=== PATIENT | female | born 1995 | race Caucasian/White ===

== ENCOUNTER 2024-10-14 10:20 | Inpatient (IN) ==
[2024-10-14] MEDS: LORazepam 2 MG/ML VIAL IM ONE (10:44)
[2024-10-14] MEDS: 0.9 % SODIUM CHLORIDE 1,000 ML IV ONE ×2 (10:45→11:45)
[2024-10-14] MEDS: HALOPERIDOL LACTATE 5 MG/ML VIAL IM ONE (10:55)
[2024-10-14] MEDS: diphenhydrAMINE 50 MG/ML VIAL IV ONE (10:55)
[2024-10-14 11:00] LABS: Basophils # (Auto) 0.02 K/mcL (0.00-0.30); Basophils % (Auto) 0.2 % (0.0-2.0); Eosinophils # (Auto) 0.05 K/mcL (0.00-0.70); Eosinophils % (Auto) 0.5 % (0.0-7.0); Hematocrit 36.4 % (34.1-44.9); Hemoglobin 11.7 g/dL (11.2-15.7); Lymphocytes # (Auto) 2.89 K/mcL (1.50-4.80); Lymphocytes % (Auto) 27.2 % (15.5-49.0); Mean Cell Volume 85.8 fL (80.0-100.0); Mean Corpuscular HGB Conc 32.1 g/dL (31.0-36.0); Monocytes # (Auto) 1.21 K/mcL (0.10-0.90); Monocytes % (Auto) 11.4 % (1.0-12.0); Platelet Count 423 K/mcL (140-440); RBC 4.24 M/mcL (3.59-5.38); WBC 10.6 K/mcL (4.5-11.0)
[2024-10-14] MEDS: ETOMIDATE 20 MG/10 ML VIAL IV ONE (11:25)
[2024-10-14] MEDS: ROCURONIUM 10 MG/ML ML IV ONE ×2 (11:26→12:27)
[2024-10-14 11:28] LABS: Alcohol, Blood < 10.1 mg/dL; Alcohol,Blood < 0.010 gm/dL (<0.010)
[2024-10-14 11:30] LABS: ALT/SGPT 39 U/L (<40); AST/SGOT 46 U/L (<32); Albumin 4.2 gm/dL (3.2-5.2); Albumin/Globulin Ratio 1.8 (1.0-2.3); Alkaline Phosphatase 78 U/L (39-117); Bilirubin,Total 0.2 mg/dL (0.1-1.0); Blood Urea Nitrogen 8 mg/dL (6-20); Calcium 9.3 mg/dL (8.6-10.4); Carbon Dioxide 22 mmol/L (22-30); Chloride 101 mmol/L (96-108); Globulin 2.4 gm/dL (2.2-3.7); Glomerular Filtration Rate 119; Glucose 148 mg/dL (70-105); Potassium 3.5 mmol/L (3.3-5.1); Sodium 138 mmol/L (133-145)
[2024-10-14] MEDS: PROPOFOL 1,000 MG in PREMIX 1 BAG IV SCH ×2 (11:40→14:40)
[2024-10-14] MEDS: MIDAZOLAM 5 MG/5 ML VIAL IV ONE ×2 (12:13→12:50)
[2024-10-14] MEDS: PROPOFOL 200 MG/20 ML VIAL IV ONE (12:15)
[2024-10-14] MEDS: fentaNYL 100 MCG/2 ML VIAL IV ONE (12:27)
[2024-10-14 12:29] LABS: Acetaminophen 10.4 ug/mL; Salicylate 7.9 mg/dL
[2024-10-14] MEDS: fentaNYL 100 MCG/2 ML VIAL ONE ×2 (13:40→18:02)
[2024-10-14 13:41] LABS: ABG Methemoglobin 0.4 % (0.4-1.5); Total Hemoglobin 12.1 gm/Dl (12.0-15.0); VBG Base Excess -1 (-2-3); VBG HCO3 21.5 mmol/L (24.0-28.0); VBG Oxygen Saturation 92.3 % (40.0-70.0); VBG PCO2 28.3 mmHg (41.0-51.0); VBG PO2 192.9 mmHg (25.0-40.0); VBG Total CO2 22.4 mmol/L (25.0-29.0)
[2024-10-14] MEDS: KETAMINE 50 MG/ML ML IV ONE ×2 (13:42→14:17)
[2024-10-14] MEDS: KETAMINE 10 MG/ML ML IV ONE (13:42)
[2024-10-14] MEDS: KETAMINE 10 MG/ML ML IM ONE (13:42)
[2024-10-14] MEDS ORDERED: SODIUM CHLORIDE 0.9% IV SCH (14:00)
[2024-10-14] MEDS ORDERED: KETAMINE IV SCH (14:00)
[2024-10-14] MEDS: cefTRIAXone 1 GM VIAL IV ONE (14:04)
[2024-10-14 15:35] LABS: Appearance,Urine Clear (Clear); Bilirubin,Urine Negative (Negative); Color,Urine Yellow; Glucose,Urine (UA) Negative (Negative); Ketones,Urine 80 mg/dL (Negative); Leukocyte Esterase,Urine Negative /uL (Negative); Nitrate,Urine Negative (Negative); Protein,Urine Negative (Negative); Specific Gravity,Urine 1.015 (1.000-1.035); Urine Blood Negative ery/mcL (Negative); Urobilinogen,Urine Normal
[2024-10-14] MEDS ORDERED: IPRATROPIUM/ALBUTEROL 3 ML AMPUL.NEB NEB PRN (16:32)
[2024-10-14] MEDS ORDERED: VANCOMYCIN PER PHARMACY IV SCH (16:32)
[2024-10-14] MEDS ORDERED: MIDAZOLAM 2 MG/2 ML VIAL IV PRN (16:32)
[2024-10-14] MEDS ORDERED: NOREPINEPHRINE BITARTRATE 8 MG in 0.9 % SODIUM CHLORIDE 242 ML IV PRN (16:32)
[2024-10-14] MEDS: SODIUM CHLORIDE 0.9% IV SCH (16:41)
[2024-10-14] MEDS: KETAMINE IV SCH (16:41)
[2024-10-14 16:49] LABS: Amphetamine Screen,Urine Suspect positive; Barbiturate Screen,Urine None detected; Benzodiazepines Screen,Urine Suspect positive; Cannabinoid Screen,Urine None detected; Cocaine Screen,Urine None detected; Fentanyl, Urine Screen Suspect Positive; Opiate Screen,Urine None detected; Oxycodone, Urine Screen None detected; Phencyclidine Screen,Urine None detected
[2024-10-14] MEDS: LACTATED RINGERS 1,000 ML IV SCH (16:58)
[2024-10-14] MEDS: fentaNYL 100 MCG/2 ML VIAL IV PRN (17:15)
[2024-10-14] MEDS ORDERED: NOREPINEPHRINE 250 ML IV PRN (17:22)
[2024-10-14] MEDS: DOXYCYCLINE 100 MG in DEXTROSE 5% IN WATER 100 ML IV SCH (17:52)
[2024-10-14] MEDS: PROPOFOL 100 ML IV ONE ×2 (18:58→21:43)
[2024-10-14] MEDS: fentaNYL 2,500 MCG in 0.9 % SODIUM CHLORIDE 200 ML IV PRN (19:15)
[2024-10-14] MEDS: VANCOMYCIN 1,500 MG in 0.9 % SODIUM CHLORIDE 500 ML IV SCH (19:30)
[2024-10-14] MEDS: 0.9 % SODIUM CHLORIDE 10 ML SYRINGE IV SCH ×2 (20:10→20:14)
[2024-10-14] MEDS: CHLORHEXIDINE GLUCONATE 15 ML UDC SWABMOUTH SCH (20:12)
[2024-10-14] MEDS: CEFEPIME 2 GM VIAL IV ONE (20:26)
[2024-10-14] MEDS: PROPOFOL 1,000 MG in PREMIX 1 BAG IV PRN (20:46)
[2024-10-14] MEDS: 0.9 % SODIUM CHLORIDE 250 ML IV SCH (21:49)
[2024-10-15] MEDS: LACTATED RINGERS 500 ML IV ONE (01:01)
[2024-10-15] MEDS: PROPOFOL 100 ML IV ONE (03:37)
[2024-10-15 07:04] LABS: Basophils # (Auto) 0.03 K/mcL (0.00-0.30); Basophils % (Auto) 0.3 % (0.0-2.0); Eosinophils # (Auto) 0.21 K/mcL (0.00-0.70); Hematocrit 32.9 % (34.1-44.9); Hemoglobin 10.7 g/dL (11.2-15.7); Lymphocytes # (Auto) 1.96 K/mcL (1.50-4.80); Lymphocytes % (Auto) 18.5 % (15.5-49.0); Mean Cell Volume 86.1 fL (80.0-100.0); Mean Corpuscular HGB Conc 32.5 g/dL (31.0-36.0); Mean Platelet Volume 9.1 fL (8.8-12.5); Monocytes # (Auto) 0.79 K/mcL (0.10-0.90); Monocytes % (Auto) 7.5 % (1.0-12.0); Neutrophils % (Auto) 71.5 % (38.0-78.0); Platelet Count 361 K/mcL (140-440); RBC 3.82 M/mcL (3.59-5.38); Red Cell Distribution Width 13.3 % (11.5-14.5); WBC 10.6 K/mcL (4.5-11.0)
[2024-10-15 07:26] LABS: ALT/SGPT 27 U/L (<40); AST/SGOT 25 U/L (<32); Albumin 3.3 gm/dL (3.2-5.2); Albumin/Globulin Ratio 1.7 (1.0-2.3); Alkaline Phosphatase 68 U/L (39-117); Bilirubin,Direct 0.2 mg/dL (<0.3); Bilirubin,Total 0.4 mg/dL (0.1-1.0); Blood Urea Nitrogen 6 mg/dL (6-20); Calcium 7.9 mg/dL (8.6-10.4); Carbon Dioxide 18 mmol/L (22-30); Chloride 108 mmol/L (96-108); Glomerular Filtration Rate 132; Glucose 79 mg/dL (70-105); Lactate Dehydrogenase 284 U/L (135-225); Phosphorous 1.6 mg/dL (2.5-4.5); Sodium 140 mmol/L (133-145); Triglycerides 74 mg/dL (<150); Uric Acid 4.8 mg/dL (2.5-8.0)
[2024-10-15] MEDS: CEFEPIME 2 GM VIAL IV SCH (08:56)
[2024-10-15] MEDS: ENOXAPARIN 40 MG/0.4 ML SYRINGE SQ SCH (08:56)
[2024-10-15] MEDS ORDERED: cefTRIAXone 1 GM VIAL IV SCH (09:00)
[2024-10-15] MEDS: POTASSIUM PHOSPHATE 40 MEQ in DEXTROSE 5% IN WATER 500 ML IV ONE (10:51)
[2024-10-15] MEDS: MUPIROCIN OINT 2% 22GM NARES SCH (10:51)
[2024-10-15] MEDS: NICOTINE 21 MG PATCH TOPICAL SCH (11:41)
[2024-10-15] MEDS: FLUoxetine HCL 20 MG CAPSULE PO SCH (14:42)
[2024-10-15] MEDS: hydrOXYzine 25 MG TABLET PO ONE (14:42)
[2024-10-15] MEDS: busPIRone 5 MG TABLET PO SCH (14:42)
[2024-10-15] MEDS: carBAMazepine 100 MG TAB.ER.12H PO SCH (14:42)
[2024-10-15] MEDS: ACETAMINOPHEN 1,000 MG/100 ML BAG IV ONE (15:58)
[2024-10-15] MEDS: CYCLOBENZAPRINE 10 MG TABLET PO PRN (20:09)
[2024-10-15] MEDS: traZODone HCL 50 MG TABLET PO SCH (20:09)
[2024-10-15] MEDS: oxyCODONE IR 5 MG TABLET PO PRN (23:11)
[2024-10-15] MEDS: oxyCODONE IR 5 MG TABLET PO ONE (23:17)
[2024-10-16] MEDS ORDERED: IOPAMIDOL 100 ML BOTTLE IV ONE (08:05)
[2024-10-16] MEDS: 0.9 % SODIUM CHLORIDE 1,000 ML IV SCH (08:41)
[2024-10-16 08:54] LABS: Basophils # (Auto) 0.03 K/mcL (0.00-0.30); Basophils % (Auto) 0.3 % (0.0-2.0); Eosinophils % (Auto) 4.4 % (0.0-7.0); Hematocrit 31.3 % (34.1-44.9); Hemoglobin 10.1 g/dL (11.2-15.7); Lymphocytes # (Auto) 1.52 K/mcL (1.50-4.80); Lymphocytes % (Auto) 16.6 % (15.5-49.0); Mean Cell Volume 86.2 fL (80.0-100.0); Mean Corpuscular HGB Conc 32.3 g/dL (31.0-36.0); Mean Platelet Volume 9.1 fL (8.8-12.5); Monocytes # (Auto) 0.68 K/mcL (0.10-0.90); Monocytes % (Auto) 7.4 % (1.0-12.0); Neutrophils % (Auto) 71.1 % (38.0-78.0); Platelet Count 330 K/mcL (140-440); RBC 3.63 M/mcL (3.59-5.38); Red Cell Distribution Width 13.7 % (11.5-14.5); WBC 9.2 K/mcL (4.5-11.0)
[2024-10-16 09:09] LABS: ALT/SGPT 24 U/L (<40); AST/SGOT 19 U/L (<32); Albumin 3.1 gm/dL (3.2-5.2); Albumin/Globulin Ratio 2.1 (1.0-2.3); Alkaline Phosphatase 79 U/L (39-117); Bilirubin,Direct < 0.2 mg/dL (0-0.3); Bilirubin,Total < 0.2 mg/dL (0.1-1.0); Blood Urea Nitrogen 5 mg/dL (6-20); Calcium 7.6 mg/dL (8.6-10.4); Carbon Dioxide 22 mmol/L (22-30); Chloride 103 mmol/L (96-108); Globulin 1.5 gm/dL (2.2-3.7); Glomerular Filtration Rate 132; Glucose 147 mg/dL (70-105); Lactate Dehydrogenase 248 U/L (135-225); Phosphorous 2.5 mg/dL (2.5-4.5); Potassium 3.8 mmol/L (3.3-5.1); Sodium 136 mmol/L (133-145); Triglycerides 100 mg/dL (<150); Uric Acid 2.5 mg/dL (2.5-8.0)
[2024-10-16] MEDS: VANCOMYCIN 1,500 MG in 0.9 % SODIUM CHLORIDE 500 ML IV SCH (11:03)
[2024-10-16] MEDS: LEVOFLOXACIN 750 MG/150 ML BAG IV SCH (11:29)
[2024-10-17 06:02] LABS: Basophils # (Auto) 0.03 K/mcL (0.00-0.30); Basophils % (Auto) 0.4 % (0.0-2.0); Eosinophils # (Auto) 0.43 K/mcL (0.00-0.70); Eosinophils % (Auto) 5.9 % (0.0-7.0); Hematocrit 34.2 % (34.1-44.9); Hemoglobin 11.1 g/dL (11.2-15.7); Lymphocytes # (Auto) 1.87 K/mcL (1.50-4.80); Lymphocytes % (Auto) 25.5 % (15.5-49.0); Mean Cell Volume 85.9 fL (80.0-100.0); Mean Corpuscular HGB Conc 32.5 g/dL (31.0-36.0); Mean Platelet Volume 9.1 fL (8.8-12.5); Monocytes # (Auto) 0.57 K/mcL (0.10-0.90); Monocytes % (Auto) 7.8 % (1.0-12.0); Neutrophils % (Auto) 60.3 % (38.0-78.0); Platelet Count 358 K/mcL (140-440); RBC 3.98 M/mcL (3.59-5.38); Red Cell Distribution Width 13.4 % (11.5-14.5); WBC 7.3 K/mcL (4.5-11.0)
[2024-10-17 06:36] LABS: ALT/SGPT 23 U/L (<40); AST/SGOT 16 U/L (<32); Albumin 3.4 gm/dL (3.2-5.2); Albumin/Globulin Ratio 1.4 (1.0-2.3); Alkaline Phosphatase 107 U/L (39-117); Bilirubin,Direct < 0.2 mg/dL (0-0.3); Bilirubin,Total < 0.2 mg/dL (0.1-1.0); Blood Urea Nitrogen 5 mg/dL (6-20); Calcium 8.8 mg/dL (8.6-10.4); Carbon Dioxide 23 mmol/L (22-30); Chloride 103 mmol/L (96-108); Globulin 2.4 gm/dL (2.2-3.7); Glomerular Filtration Rate 142; Glucose 104 mg/dL (70-105); Lactate Dehydrogenase 218 U/L (135-225); Phosphorous 3.2 mg/dL (2.5-4.5); Potassium 4.1 mmol/L (3.3-5.1); Sodium 137 mmol/L (133-145); Triglycerides 93 mg/dL (<150); Uric Acid 2.1 mg/dL (2.5-8.0)
[2024-10-17 08:06] VITALS: O2SAT 95
[2024-10-17] MEDS ORDERED: cefTRIAXone 1 GM VIAL IV SCH (09:00)
[2024-10-17] MEDS: cefTRIAXone 2 GM in DEXTROSE 5% IN WATER 50 ML IV SCH (10:05)
[2024-10-17] MEDS: AMOXICILLIN/POTASSIUM CLAV 875 MG TABLET PO SCH (12:34)
[2024-10-17 15:30] VITALS: TEMP 97.9
[2024-10-25 08:08] LABS: Alprazolam, Urine Negative (Cutoff=100); Clonazepam, Urine Negative (Cutoff=100); Flurazepam, Urine Negative (Cutoff=100); Lorazepam Confirm, Urine 114 ng/mL (Cutoff=100); Lorazepam, Urine Positive; Midazolam Confirm, Urine 1710 ng/mL (Cutoff=100); Midazolam, Urine Positive; Nordiazepam, Urine Negative (Cutoff=100); Oxazepam, Urine Negative (Cutoff=100); Temazepam, Urine Negative (Cutoff=100); Triazolam, Urine Negative (Cutoff=100)
[2024-10-28 13:09] LABS: Amphetamine Screen Positive
== END 2024-10-17 13:40 | disposition home or self-care (01) | DRG 917 ==
LOC: ED 10:20 → ICU 16:30
PROVIDERS: ADMIT Student in an Organized Health Care Education/Training Program; ATTEND Student in an Organized Health Care Education/Training Program

== ENCOUNTER 2024-11-14 23:25 | Inpatient (IN) ==
[2024-11-14] MEDS ORDERED: IOPAMIDOL 100 ML BOTTLE IV ONE (23:26)
[2024-11-14] MEDS: OLANZapine 5 MG TABLET PO ONE (23:47)
[2024-11-15] MEDS: cefTRIAXone 2 GM in DEXTROSE 5% IN WATER 50 ML IV ONE (00:01)
[2024-11-15 00:48] LABS: Appearance,Urine HAZY (Clear); Bilirubin,Urine Negative (Negative); Color,Urine Yellow; Glucose,Urine (UA) Negative (Negative); Ketones,Urine Negative (Negative); Leukocyte Esterase,Urine Negative /uL (Negative); Mucus,Urine FEW /hpf; Nitrate,Urine Negative (Negative); Protein,Urine Negative (Negative); Specific Gravity,Urine 1.021 (1.000-1.035); Urine Blood Negative (Negative); Urine RBC 6 /hpf (0-3); Urine Squamous Epithelial Cell 10 /hpf (0-4); Urine WBC 23 /hpf (0-4)
[2024-11-15] MEDS: 0.9 % SODIUM CHLORIDE 1,710 ML IV ONE (00:51)
[2024-11-15] MEDS: LORazepam 2 MG/ML VIAL IV ONE (01:00)
[2024-11-15 01:02] LABS: Amphetamine Screen,Urine Suspect positive; Barbiturate Screen,Urine None detected; Benzodiazepines Screen,Urine Suspect positive; Cannabinoid Screen,Urine Suspect Positive; Cocaine Screen,Urine None detected; Fentanyl, Urine Screen None Detected; Opiate Screen,Urine None detected; Oxycodone, Urine Screen None detected; Phencyclidine Screen,Urine None detected
[2024-11-15 01:37] LABS: Basophils # (Auto) 0.01 K/mcL (0.00-0.30); Basophils % (Auto) 0.1 % (0.0-2.0); Eosinophils # (Auto) 0.01 K/mcL (0.00-0.70); Eosinophils % (Auto) 0.1 % (0.0-7.0); Hematocrit 33.6 % (34.1-44.9); Hemoglobin 10.7 g/dL (11.2-15.7); Lymphocytes # (Auto) 0.39 K/mcL (1.50-4.80); Lymphocytes % (Auto) 3.4 % (15.5-49.0); Mean Cell Volume 84.6 fL (80.0-100.0); Mean Corpuscular HGB Conc 31.8 g/dL (31.0-36.0); Mean Platelet Volume 8.9 fL (8.8-12.5); Monocytes # (Auto) 0.31 K/mcL (0.10-0.90); Monocytes % (Auto) 2.7 % (1.0-12.0); Neutrophils % (Auto) 93.4 % (38.0-78.0); Platelet Count 373 K/mcL (140-440); RBC 3.97 M/mcL (3.59-5.38); Red Cell Distribution Width 13.2 % (11.5-14.5); WBC 11.6 K/mcL (4.5-11.0)
[2024-11-15] MEDS: fentaNYL 100 MCG/2 ML VIAL IV ONE (01:45)
[2024-11-15 01:52] LABS: ALT/SGPT 29 U/L (<40); AST/SGOT 34 U/L (<32); Albumin 3.8 gm/dL (3.2-5.2); Albumin/Globulin Ratio 1.7 (1.0-2.3); Alkaline Phosphatase 82 U/L (39-117); Bilirubin,Total 0.4 mg/dL (0.1-1.0); Blood Urea Nitrogen 13 mg/dL (6-20); Calcium 8.3 mg/dL (8.6-10.4); Carbon Dioxide 23 mmol/L (22-30); Chloride 95 mmol/L (96-108); Globulin 2.2 gm/dL (2.2-3.7); Glomerular Filtration Rate 125; Glucose 103 mg/dL (70-105); Potassium 3.7 mmol/L (3.3-5.1); Sodium 132 mmol/L (133-145)
[2024-11-15] MEDS: KETOROLAC 15 MG/ML VIAL IV ONE (02:00)
[2024-11-15] MEDS: VANCOMYCIN 1,500 MG in 0.9 % SODIUM CHLORIDE 500 ML IV ONE (02:01)
[2024-11-15 02:44] LABS: INR 1.1 (0.9-1.1); Prothrombin Time 15.2 sec (11.9-14.5)
[2024-11-15] MEDS ORDERED: ONDANSETRON 4 MG/2 ML VIAL IV PRN ×2 (07:44→10:42)
[2024-11-15] MEDS ORDERED: LORazepam 2 MG/ML VIAL IV PRN (10:41)
[2024-11-15] MEDS ORDERED: IPRATROPIUM/ALBUTEROL 3 ML AMPUL.NEB NEB PRN (10:42)
[2024-11-15] MEDS ORDERED: SENNOSIDES 1 TABLET PO PRN (10:42)
[2024-11-15] MEDS ORDERED: POLYETHYLENE GLYCOL 3350 17 GM PACKET PO PRN (10:42)
[2024-11-15] MEDS ORDERED: POTASSIUM CHLORIDE 20 MEQ TABLET PO PRN ×2 (10:42)
[2024-11-15] MEDS ORDERED: METOCLOPRAMIDE 10 MG/2 ML VIAL IV PRN (10:42)
[2024-11-15] MEDS ORDERED: POTASSIUM CHLORIDE 40 MEQ in DEXTROSE 5% IN WATER 500 ML IV PRN (10:42)
[2024-11-15] MEDS ORDERED: MAGNESIUM SULFATE 2 GM/50 ML BAG IV PRN (10:42)
[2024-11-15] MEDS ORDERED: VANCOMYCIN PER PHARMACY IV SCH (10:45)
[2024-11-15] MEDS ORDERED: CYCLOBENZAPRINE 10 MG TABLET PO PRN (10:46)
[2024-11-15] MEDS: morphine 4 MG/ML VIAL IV PRN (12:23)
[2024-11-15] MEDS: VANCOMYCIN PER PHARMACY IV ONE (12:31)
[2024-11-15] MEDS: busPIRone 5 MG TABLET PO SCH (12:35)
[2024-11-15] MEDS: ENOXAPARIN 40 MG/0.4 ML SYRINGE SQ SCH (12:36)
[2024-11-15] MEDS: 0.9 % SODIUM CHLORIDE 1,000 ML IV SCH (12:37)
[2024-11-15] MEDS: oxyCODONE/APAP 5/325MG TABLET PO PRN (14:29)
[2024-11-15] MEDS: cefTRIAXone 2 GM in DEXTROSE 5% IN WATER 50 ML IV SCH (14:36)
[2024-11-15] MEDS: 0.9 % SODIUM CHLORIDE 10 ML SYRINGE IV SCH (14:54)
[2024-11-15] MEDS: VANCOMYCIN 1,500 MG in 0.9 % SODIUM CHLORIDE 500 ML IV SCH (15:11)
[2024-11-15] MEDS: ACETAMINOPHEN 325 MG TABLET PO PRN (15:19)
[2024-11-15] MEDS: traZODone HCL 50 MG TABLET PO SCH (21:19)
[2024-11-15] MEDS: DOCUSATE SODIUM 100 MG CAPSULE PO SCH (21:20)
[2024-11-15] MEDS: QUEtiapine 100 MG TABLET PO SCH (21:20)
[2024-11-16 07:01] LABS: ALT/SGPT 18 U/L (<40); AST/SGOT 18 U/L (<32); Albumin/Globulin Ratio 1.6 (1.0-2.3); Alkaline Phosphatase 81 U/L (39-117); Bilirubin,Direct < 0.2 mg/dL (0-0.3); Bilirubin,Total 0.2 mg/dL (0.1-1.0); Blood Urea Nitrogen 13 mg/dL (6-20); Calcium 7.4 mg/dL (8.6-10.4); Carbon Dioxide 19 mmol/L (22-30); Chloride 102 mmol/L (96-108); Globulin 1.9 gm/dL (2.2-3.7); Glomerular Filtration Rate 132; Glucose 115 mg/dL (70-105); Lactate Dehydrogenase 217 U/L (135-225); Phosphorous 1.4 mg/dL (2.5-4.5); Potassium 3.5 mmol/L (3.3-5.1); Sodium 135 mmol/L (133-145); Triglycerides 123 mg/dL (<150); Uric Acid 4.7 mg/dL (2.5-8.0)
[2024-11-16] MEDS: PHOSPHORUS 250 MG TABLET PO SCH (10:13)
[2024-11-16] MEDS: NEUTRA PHOS 1 PACKET PO SCH (10:13)
[2024-11-16] MEDS: FLUoxetine HCL 20 MG CAPSULE PO SCH (10:13)
[2024-11-16] MEDS: carBAMazepine 100 MG TAB.ER.12H PO SCH (11:23)
[2024-11-16] MEDS: CLINDAMYCIN IN 0.9 % SOD CHLOR 600 MG/50 ML BAG IV SCH (11:27)
[2024-11-16] MEDS: morphine 4 MG/ML VIAL IV PRN (12:04)
[2024-11-16 12:32] LABS: Basophils # (Auto) 0.01 K/mcL (0.00-0.30); Basophils % (Auto) 0.1 % (0.0-2.0); Eosinophils # (Auto) 0.26 K/mcL (0.00-0.70); Eosinophils % (Auto) 1.5 % (0.0-7.0); Hemoglobin 9.6 g/dL (11.2-15.7); Lymphocytes # (Auto) 1.03 K/mcL (1.50-4.80); Lymphocytes % (Auto) 5.9 % (15.5-49.0); Mean Cell Volume 85.2 fL (80.0-100.0); Mean Platelet Volume 9.3 fL (8.8-12.5); Monocytes # (Auto) 0.72 K/mcL (0.10-0.90); Monocytes % (Auto) 4.1 % (1.0-12.0); Neutrophils % (Auto) 86.2 % (38.0-78.0); Platelet Count 282 K/mcL (140-440); RBC 3.52 M/mcL (3.59-5.38); Red Cell Distribution Width 13.8 % (11.5-14.5); WBC 17.6 K/mcL (4.5-11.0)
[2024-11-16 13:32] LABS: Band Neutrophils % 3 % (0-10); Eosinophils % (Manual) 1 % (0-7); Lymphocytes % 7 % (15-49); Monocytes % (Manual) 1 % (1-12); Platelet Estimate NORMAL (Normal); RBC Morphology NORMAL (Normal); Segmented Neutrophils % 88 % (38-78)
[2024-11-16] MEDS: VANCOMYCIN 1,500 MG in 0.9 % SODIUM CHLORIDE 500 ML IV SCH (15:36)
[2024-11-16] MEDS: NICOTINE 21 MG PATCH TOPICAL SCH (22:00)
[2024-11-17 05:58] LABS: Basophils # (Auto) 0.01 K/mcL (0.00-0.30); Basophils % (Auto) 0.1 % (0.0-2.0); Eosinophils # (Auto) 0.48 K/mcL (0.00-0.70); Eosinophils % (Auto) 2.8 % (0.0-7.0); Hematocrit 29.9 % (34.1-44.9); Hemoglobin 9.6 g/dL (11.2-15.7); Lymphocytes # (Auto) 1.36 K/mcL (1.50-4.80); Lymphocytes % (Auto) 8.1 % (15.5-49.0); Mean Cell Volume 85.9 fL (80.0-100.0); Mean Corpuscular HGB Conc 32.1 g/dL (31.0-36.0); Mean Platelet Volume 9.3 fL (8.8-12.5); Monocytes # (Auto) 0.72 K/mcL (0.10-0.90); Monocytes % (Auto) 4.3 % (1.0-12.0); Neutrophils % (Auto) 84.3 % (38.0-78.0); Platelet Count 302 K/mcL (140-440); RBC 3.48 M/mcL (3.59-5.38); Red Cell Distribution Width 13.7 % (11.5-14.5); WBC 16.9 K/mcL (4.5-11.0)
[2024-11-17 06:16] LABS: ALT/SGPT 17 U/L (<40); AST/SGOT 15 U/L (<32); Albumin 2.6 gm/dL (3.2-5.2); Alkaline Phosphatase 119 U/L (39-117); Bilirubin,Direct < 0.2 mg/dL (0-0.3); Bilirubin,Total < 0.2 mg/dL (0.1-1.0); Blood Urea Nitrogen 5 mg/dL (6-20); Calcium 8.3 mg/dL (8.6-10.4); Carbon Dioxide 21 mmol/L (22-30); Chloride 108 mmol/L (96-108); Globulin 2.7 gm/dL (2.2-3.7); Glomerular Filtration Rate 142; Glucose 104 mg/dL (70-105); Lactate Dehydrogenase 155 U/L (135-225); Phosphorous 1.8 mg/dL (2.5-4.5); Potassium 3.2 mmol/L (3.3-5.1); Sodium 141 mmol/L (133-145); Triglycerides 124 mg/dL (<150); Uric Acid 3.9 mg/dL (2.5-8.0)
[2024-11-17] MEDS: PHOSPHORUS 250 MG TABLET PO SCH (08:41)
[2024-11-17] MEDS: NICOTINE 21 MG PATCH TOPICAL SCH (10:16)
[2024-11-17 11:03] VITALS: TEMP 99.1; O2SAT 99
[2024-11-17] MEDS: oxyCODONE/APAP 5/325MG TABLET PO PRN (12:04)
[2024-11-17] MEDS ORDERED: MUPIROCIN OINT 2% 22GM NARES SCH (21:00)
[2024-11-22 09:09] LABS: Amphetamine Screen Positive
[2024-11-25 05:10] LABS: Alprazolam, Urine Negative (Cutoff=100); Clonazepam, Urine Negative (Cutoff=100); Flurazepam, Urine Negative (Cutoff=100); Lorazepam, Urine Negative (Cutoff=100); Midazolam, Urine Negative (Cutoff=100); Nordiazepam, Urine Negative (Cutoff=100); Oxazepam, Urine Negative (Cutoff=100); Temazepam, Urine Negative (Cutoff=100); Triazolam, Urine Negative (Cutoff=100)
== END 2024-11-17 15:28 | disposition left against medical advice (07) | DRG 602 ==
LOC: ED 23:25 → MEDSUR 11-15 09:08
PROVIDERS: ADMIT Internal Medicine; ATTEND Internal Medicine